=== PATIENT | male | born 1990 | race Caucasian/White ===

== ENCOUNTER 2019-05-13 14:29 | Emergency (ER) | payer SELFPAY | END 2019-05-13 15:01 | disposition home or self-care (01) | LOC: EDH 14:29 | DX: L03.032 Cellulitis of left toe (principal); Z88.1 Allergy status to other antibiotic agents; Z88.5 Allergy status to narcotic agent; Z90.49 Acquired absence of other specified parts of digestive tract; Z90.89 Acquired absence of other organs; Z87.891 Personal history of nicotine dependence ==

== ENCOUNTER 2019-08-06 15:34 | Emergency (ER) | payer OTHER ==
[2019-08-06 16:40] LABS: BASOPHILS % (AUTO) 0.3 % (0.0-5.0); EOSINOPHILS % (AUTO) 0.3 % (0.0-8.0); HEMATOCRIT 44.4 % (42-54); LYMPHOCYTES % (AUTO) 32.3 % (21.0-51.0); MEAN CORPUSCULAR HEMOGLOBIN 33.4 pg (27.0-33.0); MEAN CORPUSCULAR HGB CONC 35.2 g/dL (32.0-36.0); NEUTROPHILS % (AUTO) 63.1 % (40.0-77.0); PLATELET COUNT (AUTO) 184 K/uL (130-400); RED BLOOD CELL COUNT(AUTO) 4.67 MIL/uL (4.50-6.20); RED CELL DISTRIBUTION WIDTH 13.6 % (11.0-15.5)
[2019-08-06 16:52] LABS: CREATININE 1.1 mg/dL (0.5-1.5)
[2019-08-06 16:54] LABS: ALBUMIN 4.8 g/dL (3.5-5.0); BILIRUBIN,TOTAL 1.4 mg/dL (0.2-1.0); TOTAL PROTEIN, SERUM 8.6 g/dL (6.0-8.3)
[2019-08-06] MEDS ORDERED: MAGNESIUM CITRATE 296 ML SOLUTION ONE (17:22)
== END 2019-08-06 18:08 | disposition home or self-care (01) ==
LOC: EDH 15:34
DX: K59.00 Constipation, unspecified (principal); Z90.49 Acquired absence of other specified parts of digestive tract; Z98.890 Other specified postprocedural states; Z88.5 Allergy status to narcotic agent; Z88.1 Allergy status to other antibiotic agents
CPT/HCPCS: 36415; 74018; 80053; 83690; 85025

== ENCOUNTER 2019-08-12 15:48 | Emergency (ER) | payer OTHER | END 2019-08-12 17:35 | disposition home or self-care (01) | LOC: EDH 15:48 | DX: S90.31XA Contusion of right foot, initial encounter (principal); Z88.5 Allergy status to narcotic agent; Z88.1 Allergy status to other antibiotic agents; Z90.49 Acquired absence of other specified parts of digestive tract; Z98.890 Other specified postprocedural states; Z72.0 Tobacco use; W13.2XXA Fall from, out of or through roof, initial encounter; Y93.39 Activity, other involving climbing, rappelling and jumping off; Y92.69 Other specified industrial and construction area as the place of occurrence of the external cause; Y99.0 Civilian activity done for income or pay | CPT/HCPCS: 73630 ==